=== PATIENT | male | born 1975 | race Caucasian/White ===

== ENCOUNTER 2018-01-10 09:59 | Emergency (ER) | payer BC ==
[2018-01-10] MEDS ORDERED: Bacitracin Oint 1 GM U/D Packet TOP ONE (10:20)
[2018-01-10] MEDS ORDERED: Diphtheria,Pertussis(Acell),Tetanus Vaccine 0.5 ML SDV IM ONE (10:21)
--- NOTE | 2018-01-10 10:59 | EDM.PDOC ---
ED HPI GENERAL MEDICAL PROBLEM - General Chief Complaint: Laceration Stated Complaint: CUT BACK OF HEAD Time Seen by Provider: 01/10/18 10:25 Source of Information: Reports: Patient, Family History Limitations: Reports: No Limitations - History of Present Illness INITIAL COMMENTS - FREE TEXT/NARRATIVE: 42-year-old male was standing on the boat when it shifted and he fell backward striking the back of his head on the edge of the dock. He sustained a 3 cm transverse laceration on the posterior inferior scalp. He did have a period of confusion afterwards but that is resolved. He denies any neck pain, visual disturbances, nausea or vomiting or other complaints. He is otherwise healthy. Onset: Sudden Duration: Hour(s): (Within the last 2 hours) Location: Reports: Head Severity: Mild Associated Symptoms: Reports: No Other Symptoms Posterior Head Pain Score (Numeric/FACES): 3 - Related Data Allergies Allergy/AdvReac Type Severity Reaction Status Date / Time bee stings Allergy Anaphylactic Uncoded 01/10/18 10:14 Shock Home Meds: Home Meds . [Unable to Verify Home Med List] 01/10/18 [History] Past Medical History HEENT History: Reports: Impaired Vision - Infectious Disease History Infectious Disease History: Reports: Chicken Pox Social & Family History - Tobacco Use Smoking Status *Q: Never Smoker Second Hand Smoke Exposure: No - Caffeine Use Caffeine Use: Reports: Coffee, Soda - Alcohol Use Days Per Week of Alcohol Use: 1 Number of Drinks Per Day: 3 Total Drinks Per Week: 3 - Recreational Drug Use Recreational Drug Use: No ED ROS GENERAL - Review of Systems Review Of Systems: See Below Constitutional: Denies: Fever, Chills Respiratory: Denies: Shortness of Breath Cardiovascular: Denies: Chest Pain GI/Abdominal: Denies: Nausea, Vomiting Neurological: Reports: Confusion (Brief confusion resolved). Denies: Headache, Paresthesia Psychiatric: Reports: No Symptoms ED EXAM, SKIN/RASH Exam: See Below Exam Limited By: No Limitations General Appearance: Alert, No Apparent Distress Eye Exam: Bilateral Eye: EOMI Head: Other (Patient has a 3 cm transverse laceration on the inferior occiput of the scalp.) Neck: Normal Inspection, Supple, Non-Tender Respiratory/Chest: No Respiratory Distress Neurological: Alert, Oriented, No Motor/Sensory Deficits, Other (Patient ambulates without difficulty, no neurologic asymmetry or complaints) Course - Vital Signs Last Recorded V/S: Last Vital Signs Temp 95.2 F L 01/10/18 10:19 Pulse 63 01/10/18 10:19 Resp 16 01/10/18 10:19 BP 149/86 H 01/10/18 10:19 Pulse Ox 97 01/10/18 10:19 - Orders/Labs/Meds Orders: Active Orders 24 hr Category Date Time Status Vaccines to be Administered [RC] PER UNIT ROUTINE Care 01/10/18 10:21 Active Meds: Medications Discontinued Medications Generic Name Dose Route Start Last Admin Trade Name Mansi PRN Reason Stop Dose Admin Bacitracin 1 dose 01/10/18 10:20 01/10/18 10:26 Bacitracin Oint 1 Gm TOP 01/10/18 10:21 1 dose ONETIME ONE Administration Diphtheria/Tetanus/Acell Pertussis 0.5 ml 01/10/18 10:21 01/10/18 10:28 Adacel IM 01/10/18 10:22 0.5 ml .ONCE ONE Administration Lidocaine HCl 5 ml 01/10/18 10:19 01/10/18 10:27 Xylocaine-Mpf 1% INJECT 01/10/18 10:20 5 ml ONETIME ONE Administration - Re-Assessments/Exams Free Text/Narrative Re-Assessment/Exam: 01/10/18 10:57 The laceration was anesthetized with 1% lidocaine, cleansed with saline and closed with 6 mani. Topical bacitracin and a TDap Booster was given. Mani can be removed in 7 days. Departure - Departure Time of Disposition: 11:08 Disposition: Home, Self-Care 01 Condition: Good Clinical Impression: Scalp laceration Qualifiers: Encounter type: initial encounter Qualified Code(s): S01.01XA - Laceration without foreign body of scalp, initial encounter - Discharge Information Instructions: Concussion, Adult, [id number], Stitches, [place], or Adhesive Wound Closure, [id number] Referrals: PCP,None [Primary Care Provider] - Forms: ED Department Discharge Care Plan Goals: Keep wound clean while healing, and mani can be removed next Friday in 6-7 days. Ibuprofen may help with muscle soreness, no activity restrictions are required. Recheck sooner if concerns of infection or not healing satisfactorily. - My Orders Last 24 Hours: My Active Orders 01/10/18 10:21 Vaccines to be Administered [RC] PER UNIT ROUTINE - Assessment/Plan Last 24 Hours: My Active Orders 01/10/18 10:21 Vaccines to be Administered [RC] PER UNIT ROUTINE
== END 2018-01-10 11:08 | disposition home or self-care (01) ==
LOC: JP.ED 09:59
DX: S01.01XA Laceration without foreign body of scalp, initial encounter (principal); Z91.030 Bee allergy status; Z23 Encounter for immunization; V94.0XXA Hitting object or bottom of body of water due to fall from watercraft, initial encounter
CPT/HCPCS: 12002; 90471; 90715; 99283-25

== ENCOUNTER 2021-04-21 12:13 | Emergency (ER) | payer BC, OTHER ==
--- NOTE | 2021-04-21 12:58 | EDM.PDOC ---
ED HPI GENERAL MEDICAL PROBLEM - General Chief Complaint: Lower Extremity Injury/Pain Stated Complaint: LEFT KNEE PAIN Time Seen by Provider: 04/21/21 12:58 Source of Information: Reports: Patient, RN Notes Reviewed History Limitations: Reports: No Limitations - History of Present Illness INITIAL COMMENTS - FREE TEXT/NARRATIVE: Andres presents today for complaints of left knee pain with sudden injury when he slipped on a wet ramp today at 1200. He reports he felt a pop when his knee bent backward and buckled. He reports he is not able to bear weight or walk with his left leg. He denies any other injuries at this time. Left Knee Pain Score (Numeric/FACES): 8 - Related Data Allergies Allergy/AdvReac Type Severity Reaction Status Date / Time bee stings Allergy Severe Anaphylactic Uncoded 04/21/21 12:40 Shock Home Meds: Home Meds Dulaglutide [Trulicity] 0.75 mg SQ WEEKLY 04/21/21 [History] EPINEPHrine [Epinephrine] 0.15 mg IJ ASDIRECTED 04/21/21 [History] HCTZ/Triamterene [Dyazide 25-37.5 MG] 1 cap PO DAILY 04/21/21 [History] Losartan [Cozaar] 100 mg PO DAILY 04/21/21 [History] Multivitamin with Minerals [Multiple Vitamin] 1 tab PO DAILY 04/21/21 [History] Omeprazole 20 mg PO DAILY 04/21/21 [History] Phentermine HCl 37.5 mg PO DAILY 04/21/21 [History] metFORMIN [Glucophage XR] 500 mg PO DAILY 04/21/21 [History] Past Medical History HEENT History: Reports: Impaired Vision Cardiovascular History: Reports: Hypertension Gastrointestinal History: Reports: GERD Endocrine/Metabolic History: Reports: Obesity/BMI 30+ - Infectious Disease History Infectious Disease History: Reports: Chicken Pox - Past Surgical History Other Musculoskeletal Surgeries/Procedures:: right knee scope in December 2020; had meniscus tear Social & Family History - Tobacco Use Tobacco Use Status *Q: Never Tobacco User - Caffeine Use Caffeine Use: Reports: Coffee - Recreational Drug Use Recreational Drug Use: No Review of Systems - Review of Systems Review Of Systems: See Below Constitutional: Reports: No Symptoms Eyes: Reports: No Symptoms Ears: Reports: No Symptoms Nose: Reports: No Symptoms Mouth/Throat: Reports: No Symptoms Respiratory: Reports: No Symptoms Cardiovascular: Reports: No Symptoms GI/Abdominal: Reports: No Symptoms Genitourinary: Reports: No Symptoms Musculoskeletal: Reports: Leg Pain, Muscle Pain, Other (left leg/quadriceps pain with edema ) Skin: Reports: No Symptoms Neurological: Reports: No Symptoms Psychiatric: Reports: No Symptoms ED EXAM, GENERAL - Physical Exam Exam: See Below Exam Limited By: No Limitations General Appearance: Alert, WD/WN, Moderate Distress Throat/Mouth: Normal Inspection, Normal Lips, Normal Teeth, Normal Gums, Normal Oropharynx, Normal Voice, No Airway Compromise Head: Atraumatic, Normocephalic Neck: Normal Inspection, Supple, Non-Tender, Full Range of Motion. No: Lymphadenopathy (R), Lymphadenopathy (L) Respiratory/Chest: No Respiratory Distress, Lungs Clear, Normal Breath Sounds, No Accessory Muscle Use, Chest Non-Tender. No: Crackles, Rales, Rhonchi, Wheezing, Stridor Cardiovascular: Normal Peripheral Pulses, Regular Rate, Rhythm, No Edema, No Gallop, No Murmur, No Rub Back Exam: Normal Inspection, Full Range of Motion. No: CVA Tenderness (R), CVA Tenderness (L) Extremities: No Pedal Edema, Normal Capillary Refill, Leg Pain, Limited Range of Motion, Other (pain and edema with inability to extend the left leg or complete a left leg raise. Palpable deformity above patella. ). No: Javier's Sign, Redness Neurological: Alert, Oriented, No Motor/Sensory Deficits Psychiatric: Normal Affect, Normal Mood Skin Exam: Warm, Dry, Intact, Normal Color, No Rash Lymphatic: No Adenopathy ED TRAUMA EXTREMITY PROCEDURES - Splinting Left Lower Extremity Pre-Procedure NV Status: Normal Post-Procedure NV Status: Normal Splint Material: Other (Left leg knee immobilizer) Splint Design: Knee Immobilizer Applied & Form Fitted By: Nurse Provider Post-Splint Application NV Check: NV Status Normal, Good Position Complications: Yes Progress/Comments: Patient fitted for crutches Course - Vital Signs Last Recorded V/S: Last Vital Signs Temp 36.5 C 04/21/21 12:54 Pulse 74 04/21/21 12:54 Resp 16 04/21/21 12:54 BP 149/84 H 04/21/21 12:54 Pulse Ox 97 04/21/21 12:54 - Orders/Labs/Meds Meds: Medications Discontinued Medications Generic Name Dose Route Start Last Admin Trade Name Mansi PRN Reason Stop Dose Admin Hydromorphone HCl 1 mg 04/21/21 13:12 04/21/21 13:22 Hydromorphone 1 Mg/Ml Syringe IM 04/21/21 13:13 1 mg ONETIME ONE Administration - Radiology Interpretation Free Text/Narrative:: X-rays of left knee reviewed, no acute fractures noted. CD of images made for patient to take to ortho. Departure - Departure Time of Disposition: 14:59 Disposition: Home, Self-Care 01 Condition: Good Clinical Impression: Quadriceps tendon rupture - Discharge Information *PRESCRIPTION DRUG MONITORING PROGRAM REVIEWED*: Yes *COPY OF PRESCRIPTION DRUG MONITORING REPORT IN PATIENT MARINA: No Instructions: Quadriceps Strain Referrals: PCP,None [Primary Care Provider] - Forms: ED Department Discharge Additional Instructions: You have been evaluated and treated for left knee pain and most likely a quadriceps tendon tear. Unfortunately we do not have the ability to complete an MRI here in our emergency room. You will need to follow up with your orthopedic provider within the next 3 days for follow up and completion of MRI. Take ibuprofen 800mg by mouth three times a day as needed for pain. Rest, elevate your leg, ice to the knee and area above knee for pain/edema. Keep knee immobilizer on at all times. Use of crutches for all mobility, toe touch weight bearing until evaluated per orthopedics. Take percocet 1 to 2 tablets every 6 hours as needed for uncontrolled pain. Instymed provided for #20 tablets. Return for any worsening, issues or concerns. Sepsis Event Note (ED) - Evaluation Sepsis Screening Result: No Definite Risk - Focused Exam Vital Signs: Vital Signs Temp Pulse Resp BP Pulse Ox 04/21/21 12:54 36.5 C 74 16 149/84 H 97 04/21/21 12:37 36.5 C 74 16 149/84 H 97 - Assessment/Plan Assessment:: Quadriceps tendon rupture Plan: Patient evaluated and treated for left knee pain and most likely a quadriceps tendon tear. Unfortunately we do not have the ability to complete an MRI here in our emergency room. He will need to follow up with orthopedic provider within the next 3 days for follow up and completion of MRI. Take ibuprofen 800mg by mouth three times a day as needed for pain. Rest, elevate leg, ice to the knee and area above knee for pain/edema. Keep knee immobilizer on at all times. Use of crutches for all mobility, toe touch weight bearing until evaluated per orthopedics. Take percocet 1 to 2 tablets every 6 hours as needed for uncontrolled pain. Instymed provided for #20 tablets. Return for any worsening, issues or concerns. [facility] per patient request.
[2021-04-21] MEDS ORDERED: HYDROmorphone 1 MG/ML Syringe IM ONE (13:12)
--- NOTE | 2021-04-21 15:03 | CRLCR ---
For Patients: As a result of the Century Cures Act, medical imaging exams and procedure reports are released immediately into your electronic medical record. You may view this report before your referring provider. If you have questions, please contact your health care provider. Indication: Left knee injury. Technique: Three views of the left knee. Comparison: None Findings: Mild narrowing of the medial and lateral compartments are identified. Narrowing of the patellofemoral articulation is identified. No joint effusion is identified. Impression: Mild degenerative change. Dictated by Rosy Lainez MD @ 04/21/2021 3:02:54 PM (Electronically Signed)
== END 2021-04-21 16:01 | disposition home or self-care (01) ==
LOC: JP.ED 12:13
DX: S76.112A Strain of left quadriceps muscle, fascia and tendon, initial encounter (principal); I10 Essential (primary) hypertension; K21.9 Gastro-esophageal reflux disease without esophagitis; E66.9 Obesity, unspecified; Z68.38 Body mass index [BMI] 38.0-38.9, adult; Z91.030 Bee allergy status; Z79.899 Other long term (current) drug therapy; W18.40XA Slipping, tripping and stumbling without falling, unspecified, initial encounter
CPT/HCPCS: 73562; 96372; 99283; J1170